=== PATIENT | female | born 1985 | race Caucasian/White ===

== ENCOUNTER 2016-10-18 16:14 | Emergency (ER) | payer OTHER ==
[~2016-10-18] VITALS: Ht 160 cm; Wt 53.0 kg
[~2016-10-18 16:14] MED LIST: CHOL20009 PO; CRAN1CAP15 PO; DOXY100C2 PO; FERR1TAB23 PO
[2016-10-18 16:24] VITALS: TEMP 36.6; Ht 160 cm; Wt 53.0 kg
[2016-10-18] MEDS ORDERED: KETOROLAC TROMETHAMINE 30 MG/ML VIAL IV STA (16:51)
[2016-10-18] MEDS ORDERED: SODIUM CHLORIDE 0.9% 1000ML 1,000 ML IV STA (16:51)
[2016-10-18] MEDS ORDERED: SODIUM CHLORIDE 0.9% 1000ML 2,000 ML IV STA (16:51)
[2016-10-18] MEDS ORDERED: ONDANSETRON INJ 2 MG/ML 2 ML VIAL IV STA (16:51)
[2016-10-18] MEDS ORDERED: BISM262T3 PO (17:15)
[2016-10-18] MEDS ORDERED: IBUP-1050 PO (17:15)
[2016-10-18 17:20] LABS: BASO % 0.6 %; BASO ABS # 0.04 K/uL (0-0.2); COMPLETE YES; EOS % 1.3 %; HEMATOCRIT 37.8 % (37-47); IG% 0.2 %; LYMPH % 25.4 %; MEAN CELL VOLUME 89.2 fL (80-100); MEAN CORPUSCULAR HEMOGLOBIN 30.4 pg (25-34); MEAN CORPUSCULAR HGB CONC 34.1 g/dl (32-36); MEAN PLATELET VOLUME 9.2 fL (7.4-10.4); MONO % 10.8 %; NEUT % 61.7 %; PLATELET COUNT 319 K/uL (130-400); RED BLOOD COUNT 4.24 M/uL (4.2-5.4); WHITE BLOOD COUNT 6.29 K/uL (4.8-10.8)
[2016-10-18 17:40] LABS: POTASSIUM 3.6 mmol/L (3.5-5.1)
[2016-10-18 17:44] LABS: BUN/CREATININE RATIO 9.5 (10-20); CALCIUM 8.5 mg/dl (8.5-10.1); CREATININE 0.62 mg/dl (0.60-1.20)
[2016-10-18 17:47] LABS: ALB/GLOB RATIO 1.2 (0.9-2)
[2016-10-18 17:55] LABS: URINE APPEARANCE CLEAR (CLEAR); URINE BILIRUBIN NEG (NEG); URINE COLOR YELLOW; URINE NITRITE NEG (NEG); URINE SPECIFIC GRAVITY 1.013 (1.000-1.030); UROBILINOGEN NEG (NEG)
[2016-10-18 18:09] LABS: PREG INTERNAL NEGATIVE QC NEG CLEAR BACKGROUND; PREG INTERNAL POSITIVE QC POS CONTROL LINE
[2016-10-18 18:44] LABS: THYROID STIMULATING HORMONE 2.43 uIu/ml (0.300-4.500)
[2016-10-18 18:51] LABS: MANUAL MICROSCOPIC REQUIRED? NO; REVIEW REQ? NO
[2016-10-18] MEDS ORDERED: ONDA4TAB10 SL (19:35)
--- NOTE | 2016-10-18 19:38 | EMERGENCY ROOM VISIT NOTE ---
History First contact with patient: 16:28 Chief Complaint: NAUSEA Stated Complaint: NAUSEA,DIZZY,DIARRHEA,VOMITTING Nursing Triage Summary: n/v/d with FIGUEROA , kidney pain and "disorientation " History of Present Illness Patient is a 31-year-old white female who presents the emergency department today by her for evaluation of nausea, vomiting and diarrhea times one week. She states her symptoms started with loose, watery, green stools about a week ago. She notes that she would have diarrhea after every time she would eat. In the last 3 days the diarrhea has increased in frequency. Today, she felt nauseous and vomited. She has subjectively felt feverish yesterday and today, but has not recorded her temperature with a thermometer. She denies any abdominal pain, but notes some left low back pain. She has a duplicated renal system, history of renal cyst and a ureterocele repair, reports that she has been prone to urinary tract infection and kidney infections, but has not had any urinary symptoms, nor has she been on any antibiotics for several months. Patient notes that she has had a mild headache in the last couple of days. She reports that she has Lyme Disease. She was seen here a couple of years ago where she had some equivocal testing for Lyme disease and was treated with doxycycline. She was apparently treated with different antibiotic sometime later for ongoing/recurrent symptoms. She states that she has problems with fatigue, joint pain, headaches and depression that she attributes to her Lyme disease. She states that when she gets sick with other illnesses, it makes her Lyme disease symptoms worse. She is in graduate school and reports that there have been sick contacts in class. She reports that her has been well however. She denies any unusual food or water consumption, recent antibiotic use, or foreign travel. She has municipal water. She denies melena, hematochezia or hematemesis. Review of Systems Review of systems as per HPI. All other systems reviewed were negative. 10 systems reviewed. Past Medical/Surgical History Medical Problems: (1) Altered mental status (2) Borderline results on serologic testing for Lyme disease (3) Head ache (4) PCOS (polycystic ovarian syndrome) (5) Thalassemia carrier Surgical Problems: (1) History of urologic surgery Family History Cancer FH: Parkinson's disease Hypertension Kidney disease Kidney stones Social History Smoking Status: Never Smoker Alcohol Use: occasionally Marital Status: Housing Status: lives with significant other Occupation Status: employed, [employer] student Current/Historical Medications Scheduled Cholecalciferol (Vitamin D), 1 TAB PO UNKNOWN Ferrous Sulfate (Iron), 325 MG PO UNKNOWN Scheduled PRN Bismuth Subsalicylate (Pepto Bismol Chew Tab), 1 TAB PO Q12 PRN for Ibuprofen (Advil), 200-600 MG PO Q4H PRN for Pain Ondasetron Odt (Zofran Odt), 4 MG SL Q4 PRN for Nausea or Vomiting Physical Exam Vital Signs Date Time Temp Pulse Resp B/P (MAP) Pulse Ox O2 Delivery O2 Flow Rate FiO2 10/18/16 20:27 66 18 113/76 99 10/18/16 17:18 69 105/73 80 106/80 72 114/76 10/18/16 16:24 36.6 72 16 113/75 96 Physical Exam CONSTITUTIONAL: Patient is a thin, ill appearing 31-year-old white female who is awake and alert and in mild distress due to her nausea. EYES: Pupils equal, round, reactive to light and accommodation. EOMs intact without nystagmus. Sclera are anicteric. ENT: Tympanic membranes intact, with normal landmarks. External canals are clear. Oral and nasopharynx are clear. Mucous membranes are moist, no lesions , tongue and gums appear normal. NECK: No bruits auscultated. Supple without lymphadenopathy. No thyromegaly. No meningeal signs. Full active range of motion without discomfort. CARDIOVASCULAR: Regular rate and rhythm, with normal S1 and S2, no murmur or gallop or rub is heard. No carotid bruits auscultated. No JVD. Peripheral pulses easy to palpable. RESPIRATORY: Breath sounds equal and clear to auscultation without wheezes, rales, or rhonchi heard. Full and equal chest expansion without accessory muscle use or retractions. GI: Bowel sounds are present. Abdomen is soft, nontender, nondistended. No organomegaly. No pulsatile masses. No guarding or rebound. MUSCULOSKELETAL: Full range of motion of extremities x 4 with good strength. No cyanosis, edema, joint tenderness or swelling. No deformity. INTEGUMENTARY: No lesions or rash, normal skin turgor. NEUROLOGICAL: Alert, oriented, and cooperative. Cranial nerves, sensation and strength grossly intact. Pupils round, equal, and react to light, EOMs are full. LYMPH: No lymphadenopathy. Medical Decision & Procedures Laboratory Results 10/18/16 17:10 Red Blood Count 4.24, Mean Corpuscular Volume 89.2, Mean Corpuscular Hemoglobin 30.4, Mean Corpuscular Hemoglobin Concent 34.1, Mean Platelet Volume 9.2, Neutrophils (%) (Auto) 61.7, Lymphocytes (%) (Auto) 25.4, Monocytes (%) (Auto) 10.8, Eosinophils (%) (Auto) 1.3, Basophils (%) (Auto) 0.6, Neutrophils # (Auto ) 3.88, Lymphocytes # (Auto) 1.60, Monocytes # (Auto) 0.68, Eosinophils # (Auto ) 0.08, Basophils # (Auto) 0.04 10/18/16 17:10 Test 10/18/16 17:10 10/18/16 17:28 White Blood Count 6.29 K/uL (4.8-10.8) Red Blood Count 4.24 M/uL (4.2-5.4) Hemoglobin 12.9 g/dL (12.0-16.0) Hematocrit 37.8 % (37-47) Mean Corpuscular Volume 89.2 fL (80-100) Mean Corpuscular Hemoglobin 30.4 pg (25-34) Mean Corpuscular Hemoglobin Concent 34.1 g/dl (32-36) Platelet Count 319 K/uL (130-400) Mean Platelet Volume 9.2 fL (7.4-10.4) Neutrophils (%) (Auto) 61.7 % Lymphocytes (%) (Auto) 25.4 % Monocytes (%) (Auto) 10.8 % Eosinophils (%) (Auto) 1.3 % Basophils (%) (Auto) 0.6 % Neutrophils # (Auto) 3.88 K/uL (1.4-6.5) Lymphocytes # (Auto) 1.60 K/uL (1.2-3.4) Monocytes # (Auto) 0.68 K/uL (0.11-0.59) Eosinophils # (Auto) 0.08 K/uL (0-0.5) Basophils # (Auto) 0.04 K/uL (0-0.2) RDW Standard Deviation 38.8 fL (36.4-46.3) RDW Coefficient of Variation 12.1 % (11.5-14.5) Immature Granulocyte % (Auto) 0.2 % Immature Granulocyte # (Auto) 0.01 K/uL (0.00-0.02) Anion Gap 4.0 mmol/L (3-11) Est Creatinine Clear Calc Drug Dose 107.7 ml/min Estimated GFR () 138.3 Estimated GFR (Non- 119.3 BUN/Creatinine Ratio 9.5 (10-20) Calcium Level 8.5 mg/dl (8.5-10.1) Iron Level 60 mcg/dl (35-150) Total Bilirubin 0.6 mg/dl (0.2-1) Aspartate Amino Transf (AST/SGOT) 32 U/L (15-37) Alanine Aminotransferase (ALT/SGPT) 33 U/L (12-78) Alkaline Phosphatase 90 U/L (45-117) Total Protein 7.2 gm/dl (6.4-8.2) Albumin 3.9 gm/dl (3.4-5.0) Globulin 3.3 gm/dl (2.5-4.0) Albumin/Globulin Ratio 1.2 (0.9-2) Lipase 156 U/L (73-393) Thyroid Stimulating Hormone (TSH) 2.430 uIu/ml (0.300-4.500) Human Chorionic Gonadotropin, Qual NEG (NEG) Urine Color YELLOW Urine Appearance CLEAR (CLEAR) Urine pH 5.0 (4.5-7.5) Urine Specific [place] 1.013 (1.000-1.030) Urine Protein NEG (NEG) Urine Glucose (UA) NEG (NEG) Urine Ketones NEG (NEG) Urine Occult Blood NEG (NEG) Urine Nitrite NEG (NEG) Urine Bilirubin NEG (NEG) Urine Urobilinogen NEG (NEG) Urine Leukocyte Esterase NEG (NEG) Medications Administered Medications (Trade) Dose Ordered Sig/Delicia Route Start Time Stop Time Status Last Admin Dose Admin Sodium Chloride 2,000 ml @ 999 mls/hr Q2H1M STAT IV 10/18/16 16:51 10/18/16 18:51 DC 10/18/16 17:26 999 MLS/HR Ondansetron HCl (Zofran Inj) 4 mg NOW STAT IV 10/18/16 16:51 10/18/16 16:54 DC 10/18/16 17:27 4 MG Ketorolac Tromethamine (Toradol Inj) 30 mg NOW STAT IV 10/18/16 16:51 10/18/16 16:54 DC 10/18/16 17:27 30 MG ED Course The patient was seen and evaluated as above. Her old records were reviewed. IV lock was initiated and she was hydrated with a 2 L bolus of normal saline solution. She was medicated with Zofran 4 mg IV for nausea and Toradol 30 mg IV for her headache. Orthostatic vitals were obtained and she was not orthostatic. CBC with differential, CMP, lipase, serum hCG, TSH and urinalysis were performed. Patient requested that her "iron level" be tested, therefore serum iron was performed. Laboratory studies noted a normal white count, no left shift or bandemia. H&H is 12.9 37.8, platelet count 319,000. Electrolytes are without significant abnormality. Renal function is normal. Iron level was 68. LFTs are not elevated. Lipase is not indicative of acute pancreatitis. Serum hCG is negative. TSH is indicative of a euthyroid state. Urinalysis was completely clear. Stool studies were ordered, however the patient was unable to provide a stool sample to send off for analysis while in the emergency department. The patient presents to the emergency department for evaluation of a week's worth of diarrhea, with associated vomiting today. She has a benign abdominal exam. Her laboratory studies are unremarkable. She was unable to provide a stool sample for analysis, therefore stool culture was unable to be performed at this time. She was given a kit to collect a stool sample at home and in order to bring to the hospital for analysis if she is able to collect one. The patient also presents to emergency department with multiple vague symptoms including joint pain, headaches, fatigue and depression, which she suspects are related to her history of Lyme disease, but also has a history of PCOS and anemia. Supportive care was advised. She was encouraged to follow a clear liquid diet and advance as tolerated. She was provided a prescription for Zofran to use if needed. It was not felt that any imaging of her abdomen was indicated at this time. She was advised to follow-up with her primary care provider this week for recheck particularly if her symptoms are not improving. She was discharged home with her in good condition. Differential diagnoses entertained included UTI, pyelonephritis, renal colic, , ectopic , bowel obstruction, perforation, infectious versus inflammatory colitis/enteritis, diverticulitis, food borne illness, among others. Medical Decision See Emergency Department course. Medication Reconcilliation Current Medication List: was personally reviewed by me Blood Pressure Screening Patient's blood pressure: Normal blood pressure Blood pressure disposition: Did not require urgent referral Impression Primary Impression: Vomiting and diarrhea Departure Information Prescriptions Ondasetron Odt (ZOFRAN ODT) 4 Mg Tab 4 MG SL Q4 Y for Nausea or Vomiting, #20 TAB Prov: Michela Weldon PA 10/18/16 Referrals Esther Valverde CRNP (PCP) Patient Instructions My [facility] Additional Instructions Zofran(odansetron) tablets 4mg: Take one and allow it to dissolve in your mouth every four to six hours as needed for nausea or vomiting. Ibuprofen(Motrin, Advil) may be used for fever or pain. Use 600mg every six hours as needed. Take with food. Avoid using more than 2400mg in a 24 hour period. Do not use 2400mg per day for more than three consecutive days without physician direction. Prolonged inappropriate use can lead to stomach upset or ulcers. (AND/OR) Acetaminophen(Tylenol) may be used for fever or pain. Use 1000mg every six hours as needed. Avoid using more than 4000mg in a 24 hour period. Rest and drink plenty of fluids as tolerated. Slow sips of water or sports drinks are recommended instead of large amounts all at once. Continue current medications. Once your stomach is settled start with a clear liquid diet (jello, soup broth, etc.) and then advance as tolerated. You should avoid full, heavy meals for about 24 hrs from the time your symptoms resolved. Return to the ER for persistent vomiting, fevers, abdominal pain, chest pains, difficulty breathing, black or bloody stools, worsening of your condition, or as needed. Follow up with your primary physician in 2-3 days for a recheck of your current condition. If you are able to collect a stool sample at home, bring with prescription to outpatient lab at the hospital for testing.
[2016-10-18 20:27] VITALS: BP 113/76; PULSE 66; O2SAT 99
== END 2016-10-18 19:57 | disposition home or self-care (01) ==
LOC: C.EDB 16:20
DX: R11.2 Nausea with vomiting, unspecified (principal); R19.7 Diarrhea, unspecified; A69.20 Lyme disease, unspecified; F32.9 Major depressive disorder, single episode, unspecified; E28.2 Polycystic ovarian syndrome; Z80.9 Family history of malignant neoplasm, unspecified; Z82.49 Family history of ischemic heart disease and other diseases of the circulatory system; Z84.1 Family history of disorders of kidney and ureter

== ENCOUNTER 2018-06-27 13:07 | Inpatient (IN) ==
[2018-06-27] MEDS ORDERED: OXYTOCIN 30 UNITS/500 ML BAG IV PRN (14:40)
--- NOTE | 2018-06-27 14:50 | History & Physical Report ---
Date of Service June 27, 2018 Assessment & Plan (1) 39 weeks gestation of : fetus category one (2) PROM (premature rupture of membranes): Discussed expectant management vs. pitocin. They would like to walk and have expectant management for now. prom for 6 hours. Discussed would prefer not to go past 12 hours without cervical change. They are agreeable. Patient tolerated exam ok for me. Desires an unmedicated delivery. History of Present Illness Chief Complaint: leaking fluid and contractions Primary Care Provider: NO PCP Patient is a 32yowf g2/0010 with iup at 39 5/7 weeks who presents to labor and delivery noting several gushes of fluid since 8:45 am. no vb. +fm. She was evaluated in the office and per Dr. Galeas and cx was 1 cm? but very difficult exam. Then he did an amnisure after she was on the monitor and it was weakly positive. Sent here for probable labor. Patient has required iron transfusions in the at hgb at 28 week was 8.2. labs--A+/ab-/pap nl/ri/rprnr/hepb-/hiv-/gc/ct-/cf-/gtt x 2 neg/ panorama low risk male./sma neg/gbs neg Allergies Allergy/AdvReac Type Severity Reaction Status Date / Time Sulfa (Sulfonamide Allergy Unknown ANAPHYLAXIS Verified 10/18/16 17:14 Antibiotics) Home Medications Home Medications Medication Instructions Recorded Confirmed Type Colace 06/27/18 History PNV cmb#95-ferrous fumarate-FA 1 tab PO DAILY 06/27/18 06/27/18 History [] cranberry 06/27/18 History iron 06/27/18 History magnesium 06/27/18 History Patient History Medical History Anemia Hemorrhoids Herpes simplex Kidney cysts Ureterocele Surgical History H/O LEEP Social History Preferred Language: [place] Electronic Tech Required: No Beliefs That Will Affect Care: None marital status: Current Living Situation: Spouse Other Information That Helps Us Care for You: No Feels Safe at Home: Yes Safety Concerns: Feels Safe At This Time Smoking Status: Never smoker Hx Alcohol Use: No Hx Substance Use: No OB History g1--2005/sab [employer] History no std, no abnl paps Review of Systems All systems reviewed & are unremarkable except as noted in HPI & below Physical Exam Constitutional: WD/WN, vitals as above Gastrointestinal (Abdomen): abd--soft, nt, nd, gravid Genitourinary: cx--/-2/mid, feels like it may be scarred., membranes palpable toco--q6-8 min efm--145 with mod variability, accels to 160s, had a 4 min contraction with a bit of a decel, but did not recurr and immediately reassuring after. Results & Data Vital Signs (Past 12 Hours) Vital Signs Temp Pulse Resp BP 06/27/18 13:37 36.5 C 24 06/27/18 13:14 83 127/76 06/27/18 13:13 36.5 C 24
[2018-06-27 14:59] LABS: Hematocrit (blood only) 33.6 % (37-47); Hemoglobin 11.7 g/dL (12.0-16.0); Mean Corpuscular Volume 80.2 fL (80-100); Mean Platelet Volume 8.9 fL (7.4-10.4); Platelet Count 362 K/uL (130-400); RDW Coefficient of Variation 20.6 % (11.5-14.5); RDW Standard Deviation 59.5 fL (36.4-46.3); Red Blood Count 4.19 M/uL (4.2-5.4); White Blood Count 10.81 K/uL (4.8-10.8)
[2018-06-27 15:12] LABS: Mean Corpuscular Hgb Conc 34.8 g/dL (32-36)
--- NOTE | 2018-06-27 21:15 | Labor Progress Brief Note ---
Date of Service June 27, 2018 Subjective more uncomfortable with contractions Assessment & Plan (1) 39 weeks gestation of : fetus category one (2) PROM (premature rupture of membranes): Discussed expectant management vs. arom forebag vs pitocin. She definitiely does not want pit. They would like to continue to have expectant management for now. prom for 12 hours. Has made cervical change and cx feels smaller, do not feel we are going to need to break up scar. Physical Exam Constitutional: WD/WN, vitals as above Genitourinary: cx--4/-2, cervix softer, feel fluid in front of baby's head Results & Data Vital Signs (Past 12 Hours) Vital Signs Temp Pulse Resp BP 06/27/18 19:44 36.3 C L 87 18 120/71 06/27/18 19:33 87 120/71 06/27/18 18:21 36.7 C 22 06/27/18 13:37 36.5 C 24 06/27/18 13:14 83 127/76 06/27/18 13:13 36.5 C 24
--- NOTE | 2018-06-28 00:51 | Labor Progress Brief Note ---
Date of Service June 28, 2018 Subjective more uncomfortable with contractions Assessment & Plan (1) 39 weeks gestation of : fetus category one (2) PROM (premature rupture of membranes): arom done. prom for 16 hours. Patient appears to be exhausted. I tried to broach the subject of discussing pain meds but she did not pursue. Has good support with and Inventory Control Manager. no s/s of infection. fetus overall reassuring. Physical Exam Constitutional: WD/WN, vitals as above Genitourinary: cx--4-5/100/-2 toco--q2-4min, palpate moderate. efm--130s with mod variability, accels present, no decels, +scalp stim permission obtained from arom and done for clear fluid. Results & Data Vital Signs (Past 12 Hours) Vital Signs Temp Pulse Resp BP 06/27/18 22:45 36.4 C L 78 22 115/55 L 06/27/18 21:15 36.3 C L 22 06/27/18 19:44 36.3 C L 87 18 120/71 06/27/18 19:33 87 120/71 06/27/18 18:21 36.7 C 22 06/27/18 13:37 36.5 C 24 06/27/18 13:14 83 127/76 06/27/18 13:13 36.5 C 24
[2018-06-28] MEDS: LACTATED RINGER'S 1,000 ML IV PRN ×3 (01:51→08:10)
[2018-06-28] MEDS ORDERED: ePHEDrine sulfate 50 MG/ML AMP ONE (01:56)
[2018-06-28] MEDS ORDERED: BUPIVACAINE 0.25% 30 ML VIAL ONE (01:56)
[2018-06-28] MEDS ORDERED: fentaNYL citrate 100 MCG/2 ML VIAL ONE ×2 (01:56→14:28)
[2018-06-28] MEDS ORDERED: fentaNYL 2MCG/ML ROPIV 1.25MG/ML 100 ML BAG EPI ONE (01:57)
--- NOTE | 2018-06-28 02:51 | Anesthesiology Consultation ---
Date of Service June 28, 2018 Assessment & Plan (1) Encounter for pre-operative examination: Chart Review Chart Review: Patient NOT seen in Pre Admission Testing and Acceptable Risk for Labor Epidural Consults Requested none ASA ASA2 Proposed Anesthesia Anesthesia Type: Labor Epidural Risk / Benefits Reviewed With: PT / POA / Parent / Guardian, Accepts Plan and Informed Consent Obtained History Height/Weight Height: 5 ft 3 in Weight: 67.168 kg Allergies Allergy/AdvReac Type Severity Reaction Status Date / Time Sulfa (Sulfonamide Allergy Unknown ANAPHYLAXIS Verified 10/18/16 17:14 Antibiotics) Medications Home Medications Medication Instructions Recorded Confirmed Last Taken Colace 06/27/18 06/27/18 0800 PNV cmb#95-ferrous fumarate-FA 1 tab PO DAILY 06/27/18 06/27/18 06/27/18 [] 0800 cranberry 06/27/18 06/27/18 08:00 iron 06/27/18 06/27/18 0800 magnesium 06/27/18 06/26/18 08:00 Active Medications Generic Name Dose Route Start Last Admin Trade Name Freq PRN Reason Stop Dose Admin Lactated Ringer's 1,000 mls @ 125 mls/hr 06/27/18 14:40 06/28/18 01:51 Lr IV 06/29/18 14:39 999 mls/hr .Q8H PRN Administration L&D Protocol Protocol NPO Date Last Intake of Fluids: 06/28/18 Time Last Intake of Fluids: 02:00 Date Last Intake of Solids: 06/27/18 Time Last Intake of Solids: 12:00 Past Medical History Medical History Anemia Hemorrhoids Herpes simplex Kidney cysts Ureterocele Exercise / Class Metabolic Activity II 4-5 Yardwork/Stairs/Walk up hill Past Surgical History Surgical History H/O LEEP Past Anesthesia History No Hx of Anesthesia Complications and No Family Hx of Anesthesia Complications History of PONV No Hx of PONV and No Hx of Motion Sickness Social History Smoking Status: Never smoker Hx Alcohol Use: No Hx Substance Use: No Physical Exam Vital Signs Last Vital Signs Temp 36.6 C 06/28/18 01:20 Pulse 91 H 06/28/18 02:49 Resp 22 06/28/18 01:20 BP 117/61 06/28/18 02:48 Pulse Ox 94 06/28/18 02:49 ENMT Mouth: no dentition abnormality Thyromental Distance: > or= 3.5 Finger Breadths Mallampati Class: II Neck normal visual inspection Respiratory normal respiratory effort Auscultation: lungs clear to auscultation bilaterally Cardiovascular Rate/Rhythm: regular rate and regular rhythm Psychiatric Orientation: alert
[2018-06-28] MEDS ORDERED: ONDANSETRON INJ 2 MG/ML 2 ML VIAL IV PRN (02:54)
[2018-06-28] MEDS ORDERED: ePHEDrine sulfate 50 MG/ML AMP IV PRN ×2 (02:54→15:10)
[2018-06-28] MEDS ORDERED: NALOXONE HCL 0.4 MG/1 ML VIAL/CARP IV PRN ×2 (02:54→15:10)
[2018-06-28] MEDS ORDERED: fentaNYL 2MCG/ML ROPIV 1.25MG/ML 100 ML BAG EPI PRN (02:54)
[2018-06-28] MEDS ORDERED: NALBUPHINE HCL INJ 10 MG/ML AMP IV PRN ×2 (02:54→15:10)
[2018-06-28] MEDS ORDERED: PROMETHAZINE HCL 6.25 MG in SODIUM CHLORIDE 0.9% 50 ML IV PRN (02:54)
[2018-06-28] MEDS ORDERED: DiphenhydrAMINE HCL 50 MG/ML VIAL IV PRN ×2 (02:54→15:10)
[2018-06-28] MEDS ORDERED: NALOXONE HCL 1 MG in SODIUM CHLORIDE 0.9% 1000ML 1,000 ML IV PRN ×2 (02:54→15:10)
--- NOTE | 2018-06-28 03:16 | Labor Progress Brief Note ---
Date of Service June 28, 2018 Subjective patient recently got an epidual and is just starting to get comfortable Assessment & Plan (1) 39 weeks gestation of : fetus category two but overall reassuring. (2) PROM (premature rupture of membranes): Will allow patient to rest. Continue expectant management. anticipate . Physical Exam Constitutional: WD/WN, vitals as above Genitourinary: cx--6/100/-1 per nursing toco--q2-4min efm--130s with mod variability, small accels, variable/early with contractions, slightly worse since epidural. prior to epidural was just having little variables Results & Data Vital Signs (Past 12 Hours) Vital Signs Temp Pulse Resp BP Pulse Ox 06/28/18 03:10 85 111/62 06/28/18 03:06 86 96 06/28/18 03:05 86 116/56 L 06/28/18 03:01 101 H 97 06/28/18 03:00 99 H 116/55 L 06/28/18 02:56 88 96 06/28/18 02:55 93 H 113/66 06/28/18 02:51 100 H 95 06/28/18 02:49 91 H 94 06/28/18 02:48 88 117/61 06/28/18 02:46 89 120/63 96 06/28/18 02:45 89 118/63 06/28/18 02:42 90 121/67 06/28/18 02:41 100 H 119/73 95 06/28/18 02:36 98 H 97 06/28/18 02:34 103 H 94 06/28/18 02:31 97 H 97 06/28/18 02:28 98 H 94 06/28/18 02:26 85 95 06/28/18 01:20 36.6 C 86 22 120/76 06/27/18 22:45 36.4 C L 78 22 115/55 L 06/27/18 21:15 36.3 C L 22 06/27/18 19:44 36.3 C L 87 18 120/71 06/27/18 19:33 87 120/71 06/27/18 18:21 36.7 C 22
[2018-06-28] MEDS ORDERED: CEFAZOLIN 2000MG 2,000 MG/15 ML SYR IV SCH (06:00)
--- NOTE | 2018-06-28 06:21 | Labor Progress Brief Note ---
Date of Service June 28, 2018 Subjective pretty comfortable. not noting rectal pressure but pressure in abdomen Assessment & Plan (1) PROM (premature rupture of membranes): fetus category two but reassuring and will continue to watch. (2) 39 weeks gestation of : continue current management. baby still at 0 station so hopefully will labor down with some time. Physical Exam Constitutional: WD/WN, vitals as above Genitourinary: cx--slight bit of cx on right, 0 station toco--q2-4min efm--130s with mod variability, had a 6 min decel x 1, but otherwise some variables Results & Data Vital Signs (Past 12 Hours) Vital Signs Temp Pulse Resp BP Pulse Ox 06/28/18 06:13 82 96/51 L 06/28/18 06:12 87 95 06/28/18 06:11 70 86/53 L 06/28/18 06:07 80 95 06/28/18 06:02 74 95 06/28/18 05:57 76 95 06/28/18 05:55 77 88/53 L 06/28/18 05:52 75 95 06/28/18 05:50 75 94 06/28/18 05:47 74 95 06/28/18 05:45 77 94 06/28/18 05:42 76 96 06/28/18 05:41 73 86/51 L 06/28/18 05:40 75 94 06/28/18 05:37 74 95 06/28/18 05:32 78 96 06/28/18 05:27 78 95 06/28/18 05:26 71 113/58 L 06/28/18 05:22 73 96 06/28/18 05:17 75 95 06/28/18 05:12 74 96 06/28/18 05:11 69 112/59 L 06/28/18 05:07 76 95 06/28/18 05:02 78 96 06/28/18 05:00 37.0 C 18 06/28/18 04:57 73 99 06/28/18 04:56 77 113/55 L 06/28/18 04:52 71 98 06/28/18 04:47 74 99 06/28/18 04:42 76 115/62 99 06/28/18 04:37 75 99 06/28/18 04:32 73 98 06/28/18 04:27 75 99 06/28/18 04:25 73 16 108/61 06/28/18 04:22 75 99 06/28/18 04:17 74 95 06/28/18 04:16 78 101/53 L 06/28/18 04:15 74 209/131 H 06/28/18 04:12 80 95 06/28/18 04:07 73 95 06/28/18 04:06 75 107/60 06/28/18 04:02 75 94 06/28/18 04:00 75 118/58 L 06/28/18 03:59 73 94 06/28/18 03:57 74 93 06/28/18 03:55 72 107/55 L 06/28/18 03:52 74 93 06/28/18 03:50 74 109/55 L 06/28/18 03:47 76 94 06/28/18 03:45 74 108/55 L 06/28/18 03:42 78 94 06/28/18 03:41 78 94 06/28/18 03:40 75 106/59 L 06/28/18 03:36 75 94 06/28/18 03:35 77 114/59 L 06/28/18 03:31 81 95 06/28/18 03:30 76 109/58 L 94 06/28/18 03:26 77 94 06/28/18 03:25 77 115/62 06/28/18 03:24 79 94 06/28/18 03:21 79 95 06/28/18 03:20 80 110/57 L 06/28/18 03:16 85 96 06/28/18 03:15 83 116/58 L 06/28/18 03:11 80 95 06/28/18 03:10 85 111/62 06/28/18 03:06 86 96 06/28/18 03:05 86 116/56 L 06/28/18 03:01 101 H 97 06/28/18 03:00 36.7 C 99 H 20 116/55 L 06/28/18 02:56 88 96 06/28/18 02:55 93 H 113/66 06/28/18 02:51 100 H 95 06/28/18 02:49 91 H 94 06/28/18 02:48 88 117/61 06/28/18 02:46 89 120/63 96 06/28/18 02:45 89 118/63 06/28/18 02:42 90 121/67 06/28/18 02:41 100 H 119/73 95 06/28/18 02:36 98 H 97 06/28/18 02:34 103 H 94 06/28/18 02:31 97 H 97 06/28/18 02:28 98 H 94 06/28/18 02:26 85 95 06/28/18 01:20 36.6 C 86 22 120/76 06/27/18 22:45 36.4 C L 78 22 115/55 L 06/27/18 21:15 36.3 C L 22 06/27/18 19:44 36.3 C L 87 18 120/71 06/27/18 19:33 87 120/71 06/27/18 18:21 36.7 C 22
--- NOTE | 2018-06-28 09:57 | Labor Progress Brief Note ---
Date of Service June 28, 2018 Subjective Patient seen at 0852. She was comfortable with epidural and minimal pelvic pressure. She continues to decline any intervention to speed labor. Assessment & Plan (1) PROM (premature rupture of membranes): Patient has labored spontaneously to complete dilation. A test push was done which resulted in variable decelerations and was then followed by a few minutes of borderline low FHT before spontaneous resolution back to normal baseline. Despite apparent good effort, mom was not very effective in moving the head downwards. At this time there are a large number of other patients on L&D and a planned twin section scheduled for this hour. Given the patient has no urge to push, fetus is not likely to tolerate a long second stage, and a test push did not suggest a rapid delivery is likely, I have asked the patient to labor down until urge to push arises or until the concurrent twin delivery is done. At that time we will be better able to respond if FHT are nonreassuring during pushes, and/or have a shorter distance of pushing to do. Patient is strongly desirous of a low-intervention and has continued to refuse pitocin. She is happy to labor down for now and await the spontaneous urge to push. PROM onset of labor timing: onset of labor within 24 hours of rupture PROM gestational age: full term Qualified Code(s): O42.02 - Full-term premature rupture of membranes, onset of labor within 24 hours of rupture Present on Admission?: Yes Physical Exam Physical Exam: Cvx 10/100/+2 with molding noted. Mild labial edema. FHT Cat 1 with occasional early decels. [place] irregular; some coupling Q2m, some Q6m. Results & Data Vital Signs (Past 12 Hours) Vital Signs Temp Pulse Resp BP Pulse Ox 06/28/18 09:52 77 98 06/28/18 09:47 76 99 06/28/18 09:42 73 99 06/28/18 09:41 72 107/58 L 06/28/18 09:37 75 99 06/28/18 09:32 72 99 06/28/18 09:27 77 99 06/28/18 09:25 80 105/58 L 06/28/18 09:22 80 97 06/28/18 09:17 79 99 06/28/18 09:12 78 99 06/28/18 09:11 75 108/60 06/28/18 09:07 71 98 06/28/18 09:02 71 94 06/28/18 08:57 106 H 103/50 L 96 06/28/18 08:56 81 87 L 06/28/18 08:53 82 93/51 L 06/28/18 08:52 76 96 06/28/18 08:47 77 99 06/28/18 08:42 72 99 06/28/18 08:41 76 89/54 L 06/28/18 08:37 73 99 06/28/18 08:32 72 100 06/28/18 08:27 74 99 06/28/18 08:25 75 95/50 L 06/28/18 08:22 70 99 06/28/18 08:17 73 99 06/28/18 08:12 74 97/55 L 99 06/28/18 08:07 77 99 06/28/18 08:02 72 99 06/28/18 07:58 70 97/53 L 06/28/18 07:57 72 98 06/28/18 07:52 75 96 06/28/18 07:47 76 95 06/28/18 07:43 76 117/66 06/28/18 07:42 78 96 06/28/18 07:37 75 95 06/28/18 07:32 77 94 06/28/18 07:30 73 94 06/28/18 07:27 70 94 06/28/18 07:26 80 137/79 06/28/18 07:25 72 94 06/28/18 07:22 73 94 06/28/18 07:19 73 94 06/28/18 07:17 74 95 06/28/18 07:15 37.2 C 20 06/28/18 07:13 73 94 06/28/18 07:12 82 113/61 95 06/28/18 07:07 71 95 06/28/18 07:06 73 94 06/28/18 07:02 73 96 06/28/18 06:59 72 94 06/28/18 06:57 73 108/62 96 06/28/18 06:53 72 94 06/28/18 06:52 71 95 06/28/18 06:47 73 96 06/28/18 06:45 76 93 06/28/18 06:43 72 108/60 05/19 06:42 75 95 06/28/18 06:38 77 94 06/28/18 06:37 74 96 06/28/18 06:32 72 97 06/28/18 06:27 71 107/62 96 06/28/18 06:22 71 95 06/28/18 06:17 75 95 06/28/18 06:13 82 96/51 L 06/28/18 06:12 87 95 06/28/18 06:11 70 86/53 L 06/28/18 06:07 80 95 06/28/18 06:02 74 95 06/28/18 05:57 76 95 06/28/18 05:55 77 88/53 L 06/28/18 05:52 75 95 06/28/18 05:50 75 94 06/28/18 05:47 74 95 06/28/18 05:45 77 94 06/28/18 05:42 76 96 06/28/18 05:41 73 86/51 L 06/28/18 05:40 75 94 06/28/18 05:37 74 95 06/28/18 05:32 78 96 06/28/18 05:27 78 95 06/28/18 05:26 71 113/58 L 06/28/18 05:22 73 96 06/28/18 05:17 75 95 06/28/18 05:12 74 96 06/28/18 05:11 69 112/59 L 06/28/18 05:07 76 95 06/28/18 05:02 78 96 06/28/18 05:00 37.0 C 18 06/28/18 04:57 73 99 06/28/18 04:56 77 113/55 L 06/28/18 04:52 71 98 06/28/18 04:47 74 99 06/28/18 04:42 76 115/62 99 06/28/18 04:37 75 99 06/28/18 04:32 73 98 06/28/18 04:27 75 99 06/28/18 04:25 73 16 108/61 06/28/18 04:22 75 99 06/28/18 04:17 74 95 06/28/18 04:16 78 101/53 L 06/28/18 04:15 74 209/131 H 06/28/18 04:12 80 95 06/28/18 04:07 73 95 06/28/18 04:06 75 107/60 06/28/18 04:02 75 94 06/28/18 04:00 75 118/58 L 06/28/18 03:59 73 94 06/28/18 03:57 74 93 06/28/18 03:55 72 107/55 L 06/28/18 03:52 74 93 06/28/18 03:50 74 109/55 L 06/28/18 03:47 76 94 06/28/18 03:45 74 108/55 L 06/28/18 03:42 78 94 06/28/18 03:41 78 94 06/28/18 03:40 75 106/59 L 06/28/18 03:36 75 94 06/28/18 03:35 77 114/59 L 06/28/18 03:31 81 95 06/28/18 03:30 76 109/58 L 94 06/28/18 03:26 77 94 06/28/18 03:25 77 115/62 06/28/18 03:24 79 94 06/28/18 03:21 79 95 06/28/18 03:20 80 110/57 L 06/28/18 03:16 85 96 06/28/18 03:15 83 116/58 L 06/28/18 03:11 80 95 06/28/18 03:10 85 111/62 06/28/18 03:06 86 96 06/28/18 03:05 86 116/56 L 06/28/18 03:01 101 H 97 06/28/18 03:00 36.7 C 99 H 20 116/55 L 06/28/18 02:56 88 96 06/28/18 02:55 93 H 113/66 06/28/18 02:51 100 H 95 06/28/18 02:49 91 H 94 06/28/18 02:48 88 117/61 06/28/18 02:46 89 120/63 96 06/28/18 02:45 89 118/63 06/28/18 02:42 90 121/67 06/28/18 02:41 100 H 119/73 95 06/28/18 02:36 98 H 97 06/28/18 02:34 103 H 94 06/28/18 02:31 97 H 97 06/28/18 02:28 98 H 94 06/28/18 02:26 85 95 06/28/18 01:20 36.6 C 86 22 120/76 06/27/18 22:45 36.4 C L 78 22 115/55 L
--- NOTE | 2018-06-28 12:26 | Labor Progress Brief Note ---
Date of Service June 28, 2018 Subjective Patient comfortable with epidural. Seen at 12pm. Assessment & Plan (1) PROM (premature rupture of membranes): Patient has been completely dilated for several hours. Now beginning second stage actively at my recommendation. Molding noted, mild to moderate labial edema noted. Certified Professional Controller and FOB remain at bedside. Prolonged ROM is noted, but mom afebrile at this time and FHT not tachy. Patient given feedback that pushing may take a significant amount of time, as contractions are spaced up to 8 min apart and each push so far has created very little descent. I am concerned about reserve given the slow recovery from deceleration after her test push earlier this morning and again with first push now. I discussed with the patient and her support persons that we have the option to push as-is (at risk of exhaustion and/or failure to deliver making an ultimate harder), to add pitocin to bring contractions closer together and make her pushes more frequent and possibly more effective (though at risk of increasing distress as the trade-off), of attempting operative vaginal delivery to speed the process (at risk of injury to baby or mom), and/or proceeding to (with relief of distress and avoidance of pelvic impaction but at risk to mom of surgical morbidity). Each option was reviewed and all questions were answered. PROM onset of labor timing: onset of labor within 24 hours of rupture PROM gestational age: full term Qualified Code(s): O42.02 - Full-term premature rupture of membranes, onset of labor within 24 hours of rupture Present on Admission?: Yes Physical Exam Physical Exam: Second stage begun after confirming still 10/100/+2 with molding. Patient wishes to push while holding bed rails not legs. Patient pushing with evident effort and head strains slightly forward with pushes but there is no significant descent. Amniotic fluid remains clear. Temp 99.8. FHT are 145 mod adam -acc and +variable (with slow recovery after some pushes) during each push. Results & Data Vital Signs (Past 12 Hours) Vital Signs Temp Pulse Resp BP Pulse Ox 06/28/18 12:23 67 97 06/28/18 12:19 67 86 L 06/28/18 12:18 78 98 06/28/18 12:13 73 97 06/28/18 12:12 83 110/57 L 87 L 06/28/18 12:08 70 98 06/28/18 12:03 90 95 06/28/18 12:00 37.7 C H 18 06/28/18 11:58 77 95 06/28/18 11:56 74 122/69 06/28/18 11:53 77 95 06/28/18 11:48 82 94 06/28/18 11:43 78 96 06/28/18 11:42 76 114/71 06/28/18 11:38 77 94 06/28/18 11:33 76 94 06/28/18 11:28 83 95 06/28/18 11:26 76 116/66 06/28/18 11:23 77 95 06/28/18 11:18 77 94 06/28/18 11:13 75 95 06/28/18 11:12 74 114/68 06/28/18 11:08 75 95 06/28/18 11:03 73 95 06/28/18 10:58 76 95 06/28/18 10:56 73 112/62 06/28/18 10:53 76 95 06/28/18 10:48 75 95 06/28/18 10:43 73 94 06/28/18 10:41 78 107/56 L 06/28/18 10:37 79 94 06/28/18 10:32 80 94 06/28/18 10:27 83 94 06/28/18 10:26 76 105/57 L 06/28/18 10:22 87 94 06/28/18 10:17 80 94 06/28/18 10:12 78 95 06/28/18 10:11 85 113/57 L 06/28/18 10:07 37.5 C 80 18 95 06/28/18 10:02 70 99 06/28/18 09:57 84 99 06/28/18 09:56 71 105/58 L 06/28/18 09:52 77 98 06/28/18 09:47 76 99 06/28/18 09:42 73 99 05 09:41 72 107/58 L 06/28/18 09:37 75 99 06/28/18 09:32 72 99 05 09:27 77 99 05 09:25 80 105/58 L 06/28/18 09:22 80 97 05 09:17 79 99 05/24/19 09:12 78 99 06/28/18 09:11 75 108/60 06/28/18 09:07 71 98 06/28/18 09:02 71 94 06/28/18 08:57 106 H 103/50 L 96 06/28/18 08:56 81 87 L 06/28/18 08:53 82 93/51 L 06/28/18 08:52 76 96 06/28/18 08:47 77 99 06/28/18 08:42 72 99 06/28/18 08:41 76 89/54 L 06/28/18 08:37 73 99 06/28/18 08:32 72 100 06/28/18 08:27 74 99 06/28/18 08:25 75 95/50 L 06/28/18 08:22 70 99 06/28/18 08:17 73 99 06/28/18 08:12 74 97/55 L 99 06/28/18 08:07 77 99 06/28/18 08:02 72 99 06/28/18 07:58 70 97/53 L 06/28/18 07:57 72 98 06/28/18 07:52 75 96 06/28/18 07:47 76 95 06/28/18 07:43 76 117/66 06/28/18 07:42 78 96 06/28/18 07:37 75 95 06/28/18 07:32 77 94 06/28/18 07:30 73 94 06/28/18 07:27 70 94 06/28/18 07:26 80 137/79 06/28/18 07:25 72 94 06/28/18 07:22 73 94 06/28/18 07:19 73 94 06/28/18 07:17 74 95 06/28/18 07:15 37.2 C 20 06/28/18 07:13 73 94 06/28/18 07:12 82 113/61 95 06/28/18 07:07 71 95 06/28/18 07:06 73 94 06/28/18 07:02 73 96 06/28/18 06:59 72 94 06/28/18 06:57 73 108/62 96 06/28/18 06:53 72 94 06/28/18 06:52 71 95 05/24/19 06:47 73 96 06/28/18 06:45 76 93 06/28/18 06:43 72 108/60 06/28/18 06:42 75 95 06/28/18 06:38 77 94 06/28/18 06:37 74 96 06/28/18 06:32 72 97 06/28/18 06:27 71 107/62 96 06/28/18 06:22 71 95 06/28/18 06:17 75 95 06/28/18 06:13 82 96/51 L 06/28/18 06:12 87 95 06/28/18 06:11 70 86/53 L 06/28/18 06:07 80 95 06/28/18 06:02 74 95 06/28/18 05:57 76 95 06/28/18 05:55 77 88/53 L 06/28/18 05:52 75 95 06/28/18 05:50 75 94 06/28/18 05:47 74 95 06/28/18 05:45 77 94 06/28/18 05:42 76 96 06/28/18 05:41 73 86/51 L 06/28/18 05:40 75 94 06/28/18 05:37 74 95 06/28/18 05:32 78 96 06/28/18 05:27 78 95 06/28/18 05:26 71 113/58 L 06/28/18 05:22 73 96 06/28/18 05:17 75 95 06/28/18 05:12 74 96 06/28/18 05:11 69 112/59 L 06/28/18 05:07 76 95 06/28/18 05:02 78 96 06/28/18 05:00 37.0 C 18 06/28/18 04:57 73 99 06/28/18 04:56 77 113/55 L 06/28/18 04:52 71 98 06/28/18 04:47 74 99 06/28/18 04:42 76 115/62 99 06/28/18 04:37 75 99 06/28/18 04:32 73 98 06/28/18 04:27 75 99 06/28/18 04:25 73 16 108/61 06/28/18 04:22 75 99 06/28/18 04:17 74 95 06/28/18 04:16 78 101/53 L 06/28/18 04:15 74 209/131 H 06/28/18 04:12 80 95 06/28/18 04:07 73 95 06/28/18 04:06 75 107/60 06/28/18 04:02 75 94 06/28/18 04:00 75 118/58 L 06/28/18 03:59 73 94 06/28/18 03:57 74 93 06/28/18 03:55 72 107/55 L 06/28/18 03:52 74 93 06/28/18 03:50 74 109/55 L 06/28/18 03:47 76 94 06/28/18 03:45 74 108/55 L 06/28/18 03:42 78 94 06/28/18 03:41 78 94 06/28/18 03:40 75 106/59 L 06/28/18 03:36 75 94 06/28/18 03:35 77 114/59 L 06/28/18 03:31 81 95 06/28/18 03:30 76 109/58 L 94 06/28/18 03:26 77 94 06/28/18 03:25 77 115/62 06/28/18 03:24 79 94 06/28/18 03:21 79 95 06/28/18 03:20 80 110/57 L 06/28/18 03:16 85 96 06/28/18 03:15 83 116/58 L 06/28/18 03:11 80 95 06/28/18 03:10 85 111/62 06/28/18 03:06 86 96 06/28/18 03:05 86 116/56 L 06/28/18 03:01 101 H 97 06/28/18 03:00 36.7 C 99 H 20 116/55 L 06/28/18 02:56 88 96 06/28/18 02:55 93 H 113/66 06/28/18 02:51 100 H 95 06/28/18 02:49 91 H 94 06/28/18 02:48 88 117/61 06/28/18 02:46 89 120/63 96 06/28/18 02:45 89 118/63 06/28/18 02:42 90 121/67 06/28/18 02:41 100 H 119/73 95 06/28/18 02:36 98 H 97 06/28/18 02:34 103 H 94 06/28/18 02:31 97 H 97 06/28/18 02:28 98 H 94 06/28/18 02:26 85 95 06/28/18 01:20 36.6 C 86 22 120/76
[2018-06-28] MEDS ORDERED: OXYTOCIN 30 UNITS/500 ML BAG IV PRN (12:34)
[2018-06-28] MEDS ORDERED: SODIUM CHLORIDE 0.65% NA SOLN 45 ML (OCEAN) ONE (13:22)
[2018-06-28] MEDS ORDERED: LACTATED RINGER'S 1,000 ML IV SCH ×2 (14:15→15:08)
--- NOTE | 2018-06-28 14:28 | Labor Progress Brief Note ---
Date of Service June 28, 2018 Assessment & Plan (1) PROM (premature rupture of membranes): Patient has given her best effort for 2 hours. Intermittent FHT Cat 2 prevented more than small amounts of pitocin from being used. At this time, exam of the patient shows head has not come below +2 station. In addition, even during pushes, I am able to displace the head upwards and allow free flow of amniotic fluid. Labia continue to swell and are now moderately to severely edematous. I expressed my concerns that this is not likely to fit through the pelvis and that the best decision for maternal and safety would be to move to section. Mom is tearful as this was not what she hoped for, but she is accepting of the recommendation and agrees to this. Emotional support provided. A lengthy bedside conversation was held with patient, FOB and wheel and caster repairer to offer support, answer questions, and go through the consent process. PROM onset of labor timing: onset of labor within 24 hours of rup ture PROM gestational age: full term Qualified Code(s): O42.02 - Full-term premature rupture of membranes, onset of labor within 24 hours of rupture Present on Admission?: Yes Results & Data Vital Signs (Past 12 Hours) Vital Signs Temp Pulse Resp BP Pulse Ox 06/28/18 14:18 91 H 98 06/28/18 14:13 79 97 06/28/18 14:10 74 102/62 06/28/18 14:08 84 99 06/28/18 14:03 88 96 06/28/18 13:58 75 97 06/28/18 13:55 86 103/59 L 06/28/18 13:53 89 95 06/28/18 13:48 81 96 06/28/18 13:45 37.4 C 20 06/28/18 13:43 76 96 06/28/18 13:40 68 105/59 L 06/28/18 13:38 79 99 06/28/18 13:33 79 99 06/28/18 13:28 72 99 06/28/18 13:26 73 104/61 06/28/18 13:24 82 88 L 06/28/18 13:23 68 96 06/28/18 13:18 68 98 06/28/18 13:15 74 88 L 06/28/18 13:13 75 99 06/28/18 13:11 65 110/53 L 06/28/18 13:08 61 96 06/28/18 13:03 66 96 06/28/18 12:58 66 97 06/28/18 12:57 63 113/64 06/28/18 12:53 76 95 06/28/18 12:48 68 97 06/28/18 12:47 130 H 88 L 06/28/18 12:43 64 98 06/28/18 12:42 120 H 89 L 06/28/18 12:40 76 119/68 06/28/18 12:38 73 99 06/28/18 12:33 72 97 06/28/18 12:28 72 97 06/28/18 12:25 68 114/59 L 06/28/18 12:23 67 97 06/28/18 12:19 67 86 L 06/28/18 12:18 78 98 06/28/18 12:13 73 97 06/28/18 12:12 83 110/57 L 87 L 06/28/18 12:08 70 98 06/28/18 12:03 90 95 06/28/18 12:00 37.7 C H 18 06/28/18 11:58 77 95 06/28/18 11:56 74 122/69 05 11:53 77 95 06/28/18 11:48 82 94 06/28/18 11:43 78 96 06/28/18 11:42 76 114/71 06/28/18 11:38 77 94 06/28/18 11:33 76 94 06/28/18 11:28 83 95 06/28/18 11:26 76 116/66 05 11:23 77 95 05 11:18 77 94 06/28/18 11:13 75 95 05 11:12 74 114/68 06/28/18 11:08 75 95 06/28/18 11:03 73 95 05 10:58 76 95 05 10:56 73 112/62 06/28/18 10:53 76 95 06/28/18 10:48 75 95 05 10:43 73 94 06/28/18 10:41 78 107/56 L 06/28/18 10:37 79 94 05 10:32 80 94 05/24/19 10:27 83 94 06/28/18 10:26 76 105/57 L 06/28/18 10:22 87 94 06/28/18 10:17 80 94 06/28/18 10:12 78 95 06/28/18 10:11 85 113/57 L 06/28/18 10:07 37.5 C 80 18 95 06/28/18 10:02 70 99 06/28/18 09:57 84 99 06/28/18 09:56 71 105/58 L 06/28/18 09:52 77 98 06/28/18 09:47 76 99 06/28/18 09:42 73 99 06/28/18 09:41 72 107/58 L 06/28/18 09:37 75 99 06/28/18 09:32 72 99 06/28/18 09:27 77 99 06/28/18 09:25 80 105/58 L 06/28/18 09:22 80 97 06/28/18 09:17 79 99 06/28/18 09:12 78 99 06/28/18 09:11 75 108/60 06/28/18 09:07 71 98 06/28/18 09:02 71 94 06/28/18 08:57 106 H 103/50 L 96 06/28/18 08:56 81 87 L 06/28/18 08:53 82 93/51 L 06/28/18 08:52 76 96 06/28/18 08:47 77 99 06/28/18 08:42 72 99 06/28/18 08:41 76 89/54 L 06/28/18 08:37 73 99 06/28/18 08:32 72 100 06/28/18 08:27 74 99 06/28/18 08:25 75 95/50 L 06/28/18 08:22 70 99 06/28/18 08:17 73 99 06/28/18 08:12 74 97/55 L 99 06/28/18 08:07 77 99 06/28/18 08:02 72 99 06/28/18 07:58 70 97/53 L 06/28/18 07:57 72 98 06/28/18 07:52 75 96 06/28/18 07:47 76 95 06/28/18 07:43 76 117/66 06/28/18 07:42 78 96 05 07:37 75 95 05 07:32 77 94 05 07:30 73 94 05 07:27 70 94 05 07:26 80 137/79 05 07:25 72 94 05 07:22 73 94 05 07:19 73 94 05 07:17 74 95 05 07:15 37.2 C 20 06/28/18 07:13 73 94 05 07:12 82 113/61 95 05 07:07 71 95 05 07:06 73 94 05 07:02 73 96 05 06:59 72 94 05 06:57 73 108/62 96 05 06:53 72 94 05 06:52 71 95 05 06:47 73 96 05 06:45 76 93 05 06:43 72 108/60 05 06:42 75 95 05 06:38 77 94 05 06:37 74 96 05 06:32 72 97 05 06:27 71 107/62 96 05 06:22 71 95 05 06:17 75 95 05 06:13 82 96/51 L 06/28/18 06:12 87 95 05 06:11 70 86/53 L 06/28/18 06:07 80 95 05 06:02 74 95 05 05:57 76 95 05 05:55 77 88/53 L 05 05:52 75 95 05 05:50 75 94 05 05:47 74 95 05 05:45 77 94 05 05:42 76 96 05 05:41 73 86/51 L 06/28/18 05:40 75 94 05 05:37 74 95 05 05:32 78 96 05 05:27 78 95 05 05:26 71 113/58 L 06/28/18 05:22 73 96 06/28/18 05:17 75 95 06/28/18 05:12 74 96 06/28/18 05:11 69 112/59 L 06/28/18 05:07 76 95 06/28/18 05:02 78 96 06/28/18 05:00 37.0 C 18 06/28/18 04:57 73 99 06/28/18 04:56 77 113/55 L 06/28/18 04:52 71 98 06/28/18 04:47 74 99 06/28/18 04:42 76 115/62 99 06/28/18 04:37 75 99 06/28/18 04:32 73 98 06/28/18 04:27 75 99 06/28/18 04:25 73 16 108/61 06/28/18 04:22 75 99 06/28/18 04:17 74 95 06/28/18 04:16 78 101/53 L 06/28/18 04:15 74 209/131 H 06/28/18 04:12 80 95 06/28/18 04:07 73 95 06/28/18 04:06 75 107/60 06/28/18 04:02 75 94 06/28/18 04:00 75 118/58 L 06/28/18 03:59 73 94 06/28/18 03:57 74 93 06/28/18 03:55 72 107/55 L 06/28/18 03:52 74 93 06/28/18 03:50 74 109/55 L 06/28/18 03:47 76 94 06/28/18 03:45 74 108/55 L 06/28/18 03:42 78 94 06/28/18 03:41 78 94 06/28/18 03:40 75 106/59 L 06/28/18 03:36 75 94 06/28/18 03:35 77 114/59 L 06/28/18 03:31 81 95 06/28/18 03:30 76 109/58 L 94 06/28/18 03:26 77 94 06/28/18 03:25 77 115/62 06/28/18 03:24 79 94 06/28/18 03:21 79 95 06/28/18 03:20 80 110/57 L 06/28/18 03:16 85 96 06/28/18 03:15 83 116/58 L 06/28/18 03:11 80 95 06/28/18 03:10 85 111/62 06/28/18 03:06 86 96 06/28/18 03:05 86 116/56 L 06/28/18 03:01 101 H 97 06/28/18 03:00 36.7 C 99 H 20 116/55 L 06/28/18 02:56 88 96 06/28/18 02:55 93 H 113/66 06/28/18 02:51 100 H 95 06/28/18 02:49 91 H 94 06/28/18 02:48 88 117/61 06/28/18 02:46 89 120/63 96 06/28/18 02:45 89 118/63 06/28/18 02:42 90 121/67 06/28/18 02:41 100 H 119/73 95 06/28/18 02:36 98 H 97 06/28/18 02:34 103 H 94 06/28/18 02:31 97 H 97 06/28/18 02:28 98 H 94 06/28/18 02:26 85 95
[2018-06-28] MEDS ORDERED: LIDOCAINE/EPINEPHRINE 2% 1:200,000 20 ML SDV ONE ×2 (14:29→14:49)
[2018-06-28] MEDS ORDERED: CITRIC ACID/SODIUM CITRATE 15 ML UDC ONE (14:31)
[2018-06-28 14:36] LABS: Basophils # (auto) 0.01 K/uL (0-0.2); Basophils % (auto) 0.1 %; Hematocrit (blood only) 30.9 % (37-47); Hemoglobin 10.7 g/dL (12.0-16.0); Immature Granulocytes # (auto) 0.06 K/uL (0.00-0.02); Immature Granulocytes % (auto) 0.4 %; Lymphocytes # (auto) 1.02 K/uL (1.2-3.4); Lymphocytes % (auto) 6.1 %; Mean Platelet Volume 9.2 fL (7.4-10.4); Monocytes # (auto) 1.16 K/uL (0.11-0.59); Neutrophils # (auto) 14.39 K/uL (1.4-6.5); Neutrophils % (auto) 86.4 %; Platelet Count 275 K/uL (130-400); RDW Coefficient of Variation 19.9 % (11.5-14.5); RDW Standard Deviation 56.3 fL (36.4-46.3); Red Blood Count 3.91 M/uL (4.2-5.4); White Blood Count 16.64 K/uL (4.8-10.8)
[2018-06-28 14:46] LABS: Mean Corpuscular Hgb Conc 34.6 g/dL (32-36)
[2018-06-28] MEDS ORDERED: PHENYLEPHRINE HCL 10 MG/ML VIAL ONE (14:51)
[2018-06-28] MEDS ORDERED: OXYTOCIN 10 UNITS/ML VIAL ONE ×2 (14:54→14:56)
[2018-06-28] MEDS ORDERED: MoRPHine SULFATE PF 1 MG/ML 10 ML AMP/VIAL ONE (14:55)
[2018-06-28] MEDS ORDERED: ONDANSETRON INJ 2 MG/ML 2 ML VIAL ONE (15:03)
[2018-06-28] MEDS ORDERED: HYDROmorphone INJ 0.5 MG/0.5 ML SYR IV PRN (15:10)
[2018-06-28] MEDS ORDERED: MoRPHine SULFATE PF 1 MG/ML 10 ML AMP/VIAL EPI ONE (15:10)
[2018-06-28] MEDS ORDERED: NALOXONE HCL 0.08 MG in SYRINGE 1.8 ML IV PRN (15:10)
[2018-06-28] MEDS ORDERED: LACTATED RINGER'S 500 ML IV PRN (15:10)
[2018-06-28] MEDS ORDERED: NO NARCOTICS OR SEDATIVES SCH (15:15)
[2018-06-28] MEDS ORDERED: SODIUM CHLORIDE 0.9% 1000ML 1,000 ML IV SCH (15:15)
--- NOTE | 2018-06-28 15:42 | Operative Report ---
Post Operative Report Pre & Post Diagnosis Operation Date: 06/28/18 14:30 Pre-Op Diagnosis: Failure to descend Post-Op Diagnosis: Failure to descend Procedure Operation Date: 06/28/18 14:30 Actual Procedures p Section in LD - Natacha Baca MD Surgeon Natacha Baca MD Color Technician Ray Estimated Blood Loss 600 Findings Consistent with Post-Op Diagnosis Specimens Placenta, cord blood Anesthesia Type Spinal Complications none Disposition Accompanied Patient To Recovery: Yes Disposition: L&D Description of Procedure The patient was brought to the operating room and placed on the table in the supine position with a leftward tilt, then prepped and draped in standard sterile fashion. A hard time out was taken prior to proceeding. A pfannensteil incision was created sharply and carried down to the fascia using bovie electrocautery. The fascia was nicked and then extended using patel scissors. The edges of the fascia were grasped with Kamilla clamps and elevated, then sharply and bluntly dissected off the underlying rectus. The midline of the rectus was identified and bluntly . The peritoneum was bluntly entered, and this entry was extended using pressure from the surgeon's hands. The bladder retractor was placed and the lower uterine segment was examined and found to be well developed. A bladder flap was created and the retractor was replaced behind this flap to protect the bladder. A transverse lower uterine incision was then created, with final entry to the uterine cavity made in a blunt manner with the surgeon's finger. Clear amniotic fluid was encountered. The head was elevated to the incision and delivered using mild fundal pressure. The cord was doubly clamped and cut, then the vigorous was taken to the warmer for reinforcing steel placer care. The placenta was manually extracted, then the uterus was gently exteriorized from the maternal abdomen. The cavity was cleared of clot and debris using a dry lap sponge. The angles of the incision were identified with allis clamps, and the hysterotomy was then repaired in running locked fashion using 0-vicryl suture, followed by a second imbricating layer. The tubes and ovaries were examined and found to be normal bilaterally. The posterior gutter was irrigated and cleared of clot and debris. The uterus was then gently re-internalized to the abdomen. Lateral gutters were cleared of clot and debris using a damp lap sponge, and a final exam of the hysterotomy revealed good hemostasis. The rectus muscles were allowed to reapproximate naturally. The angle of the fascia was grasped with a Kamilla clamp and the fascia was then repaired in running non-locked fashion with 1- vicryl suture. At the completion of repair, the fascia was examined and found to be free of any defect. The subcutaneous tissue was copiously irrigated and then reapproximated using 3-0 chromic. The skin was then closed using 4-0 monocryl in a running subcuticular fashion and a dermabond dressing was applied. The muller was noted to be draining clear yellow urine as the patient was transferred back to her recovery room. I attest to the content of the Intraoperative Record and any orders documented therein. Any exceptions are noted below.
[2018-06-28] MEDS ORDERED: ACETAMINOPHEN 1,000 MG/100 ML VIAL IV STA (15:48)
[2018-06-28] MEDS ORDERED: DIPHTHERIA/TETANUS/PERTUSSIS 0.5 ML SYR/VIAL IM ONE (16:26)
[2018-06-28] MEDS ORDERED: HYDROCORTISONE ACETATE 25 MG SUPP PR PRN (16:26)
[2018-06-28] MEDS ORDERED: BENZOCAINE 20% AER SPR 82.5 GM CAN EXT PRN (16:26)
[2018-06-28] MEDS ORDERED: PROMETHAZINE HCL 25 MG in SODIUM CHLORIDE 0.9% 50 ML IV PRN (16:26)
[2018-06-28] MEDS ORDERED: OXYTOCIN 30 UNITS in LACTATED RINGER'S 1,000 ML IV SCH (16:30)
--- NOTE | 2018-06-28 16:52 | Anesthesia Procedure Note ---
Date of Service June 28, 2018 Anesthesia Post Epidural Note Vital Signs Vital Signs: Temp Pulse Pulse Resp BP Pulse Ox 06/28/18 16:46 82 93 06/28/18 16:45 80 110/57 L 06/28/18 16:41 86 94 06/28/18 16:40 81 20 106/58 L 06/28/18 16:36 78 94 06/28/18 16:31 81 101/57 L 94 06/28/18 16:30 36.8 C 20 06/28/18 16:26 84 149/72 H 93 06/28/18 16:21 86 95 06/28/18 16:20 84 18 89/56 L 06/28/18 16:16 89 93 06/28/18 16:11 85 92 06/28/18 16:10 81 18 86/48 L 06/28/18 16:06 89 92 06/28/18 16:04 83 95/53 L 06/28/18 16:02 82 93/51 L 06/28/18 16:01 83 94 06/28/18 15:59 78 88/51 L 06/28/18 15:57 76 85/50 L 06/28/18 15:56 85 87/49 L 93 06/28/18 15:51 81 86 L 06/28/18 15:46 81 92/52 L 94 06/28/18 15:41 85 93 06/28/18 15:40 36.9 C 82 16 06/28/18 15:36 83 91/51 L 93 06/28/18 14:33 84 95 06/28/18 14:28 80 95 06/28/18 14:23 83 95 06/28/18 14:18 91 H 98 06/28/18 14:13 79 97 06/28/18 14:10 74 102/62 06/28/18 14:08 84 99 06/28/18 14:03 88 96 06/28/18 13:58 75 97 06/28/18 13:55 86 103/59 L 06/28/18 13:53 89 95 06/28/18 13:48 81 96 06/28/18 13:45 37.4 C 20 06/28/18 13:43 76 96 06/28/18 13:40 68 105/59 L 06/28/18 13:38 79 99 06/28/18 13:33 79 99 06/28/18 13:28 72 99 06/28/18 13:26 73 104/61 06/28/18 13:24 82 88 L 06/28/18 13:23 68 96 06/28/18 13:18 68 98 06/28/18 13:15 74 88 L 06/28/18 13:13 75 99 06/28/18 13:11 65 110/53 L 06/28/18 13:08 61 96 06/28/18 13:03 66 96 06/28/18 12:58 66 97 06/28/18 12:57 63 113/64 06/28/18 12:53 76 95 06/28/18 12:48 68 97 06/28/18 12:47 130 H 88 L 06/28/18 12:43 64 98 06/28/18 12:42 120 H 89 L 06/28/18 12:40 76 119/68 06/28/18 12:38 73 99 06/28/18 12:33 72 97 06/28/18 12:28 72 97 06/28/18 12:25 68 114/59 L 06/28/18 12:23 67 97 06/28/18 12:19 67 86 L 06/28/18 12:18 78 98 06/28/18 12:13 73 97 06/28/18 12:12 83 110/57 L 87 L 06/28/18 12:08 70 98 06/28/18 12:03 90 95 06/28/18 12:00 37.7 C H 18 06/28/18 11:58 77 95 06/28/18 11:56 74 122/69 06/28/18 11:53 77 95 06/28/18 11:48 82 94 06/28/18 11:43 78 96 06/28/18 11:42 76 114/71 06/28/18 11:38 77 94 06/28/18 11:33 76 94 06/28/18 11:28 83 95 06/28/18 11:26 76 116/66 06/28/18 11:23 77 95 06/28/18 11:18 77 94 06/28/18 11:13 75 95 06/28/18 11:12 74 114/68 06/28/18 11:08 75 95 06/28/18 11:03 73 95 05/19 10:58 76 95 06/28/18 10:56 73 112/62 06/28/18 10:53 76 95 06/28/18 10:48 75 95 06/28/18 10:43 73 94 06/28/18 10:41 78 107/56 L 06/28/18 10:37 79 94 06/28/18 10:32 80 94 06/28/18 10:27 83 94 06/28/18 10:26 76 105/57 L 06/28/18 10:22 87 94 06/28/18 10:17 80 94 06/28/18 10:12 78 95 06/28/18 10:11 85 113/57 L 06/28/18 10:07 37.5 C 80 18 95 06/28/18 10:02 70 99 06/28/18 09:57 84 99 06/28/18 09:56 71 105/58 L 06/28/18 09:52 77 98 06/28/18 09:47 76 99 06/28/18 09:42 73 99 06/28/18 09:41 72 107/58 L 06/28/18 09:37 75 99 06/28/18 09:32 72 99 06/28/18 09:27 77 99 06/28/18 09:25 80 105/58 L 06/28/18 09:22 80 97 06/28/18 09:17 79 99 06/28/18 09:12 78 99 06/28/18 09:11 75 108/60 06/28/18 09:07 71 98 06/28/18 09:02 71 94 06/28/18 08:57 106 H 103/50 L 96 06/28/18 08:56 81 87 L 06/28/18 08:53 82 93/51 L 06/28/18 08:52 76 96 06/28/18 08:47 77 99 06/28/18 08:42 72 99 06/28/18 08:41 76 89/54 L 06/28/18 08:37 73 99 06/28/18 08:32 72 100 06/28/18 08:27 74 99 06/28/18 08:25 75 95/50 L 06/28/18 08:22 70 99 06/28/18 08:17 73 99 06/28/18 08:12 74 97/55 L 99 06/28/18 08:07 77 99 05 08:02 72 99 05 07:58 70 97/53 L 06/28/18 07:57 72 98 06/28/18 07:52 75 96 05 07:47 76 95 06/28/18 07:43 76 117/66 06/28/18 07:42 78 96 05 07:37 75 95 06/28/18 07:32 77 94 06/28/18 07:30 73 94 06/28/18 07:27 70 94 06/28/18 07:26 80 137/79 06/28/18 07:25 72 94 06/28/18 07:22 73 94 06/28/18 07:19 73 94 06/28/18 07:17 74 95 06/28/18 07:15 37.2 C 20 06/28/18 07:13 73 94 06/28/18 07:12 82 113/61 95 06/28/18 07:07 71 95 06/28/18 07:06 73 94 06/28/18 07:02 73 96 06/28/18 06:59 72 94 06/28/18 06:57 73 108/62 96 06/28/18 06:53 72 94 06/28/18 06:52 71 95 06/28/18 06:47 73 96 06/28/18 06:45 76 93 06/28/18 06:43 72 108/60 06/28/18 06:42 75 95 06/28/18 06:38 77 94 06/28/18 06:37 74 96 06/28/18 06:32 72 97 06/28/18 06:27 71 107/62 96 06/28/18 06:22 71 95 06/28/18 06:17 75 95 06/28/18 06:13 82 96/51 L 06/28/18 06:12 87 95 06/28/18 06:11 70 86/53 L 06/28/18 06:07 80 95 06/28/18 06:02 74 95 06/28/18 05:57 76 95 06/28/18 05:55 77 88/53 L 06/28/18 05:52 75 95 06/28/18 05:50 75 94 06/28/18 05:47 74 95 06/28/18 05:45 77 94 06/28/18 05:42 76 96 06/28/18 05:41 73 86/51 L 06/28/18 05:40 75 94 06/28/18 05:37 74 95 06/28/18 05:32 78 96 06/28/18 05:27 78 95 06/28/18 05:26 71 113/58 L 06/28/18 05:22 73 96 06/28/18 05:17 75 95 06/28/18 05:12 74 96 06/28/18 05:11 69 112/59 L 06/28/18 05:07 76 95 06/28/18 05:02 78 96 06/28/18 05:00 37.0 C 18 06/28/18 04:57 73 99 06/28/18 04:56 77 113/55 L 06/28/18 04:52 71 98 06/28/18 04:47 74 99 06/28/18 04:42 76 115/62 99 06/28/18 04:37 75 99 06/28/18 04:32 73 98 06/28/18 04:27 75 99 06/28/18 04:25 73 16 108/61 06/28/18 04:22 75 99 06/28/18 04:17 74 95 06/28/18 04:16 78 101/53 L 06/28/18 04:15 74 209/131 H 06/28/18 04:12 80 95 06/28/18 04:07 73 95 06/28/18 04:06 75 107/60 06/28/18 04:02 75 94 06/28/18 04:00 75 118/58 L 06/28/18 03:59 73 94 06/28/18 03:57 74 93 06/28/18 03:55 72 107/55 L 06/28/18 03:52 74 93 06/28/18 03:50 74 109/55 L 06/28/18 03:47 76 94 06/28/18 03:45 74 108/55 L 06/28/18 03:42 78 94 06/28/18 03:41 78 94 06/28/18 03:40 75 106/59 L 06/28/18 03:36 75 94 06/28/18 03:35 77 114/59 L 06/28/18 03:31 81 95 06/28/18 03:30 76 109/58 L 94 06/28/18 03:26 77 94 06/28/18 03:25 77 115/62 06/28/18 03:24 79 94 06/28/18 03:21 79 95 06/28/18 03:20 80 110/57 L 06/28/18 03:16 85 96 06/28/18 03:15 83 116/58 L 06/28/18 03:11 80 95 06/28/18 03:10 85 111/62 06/28/18 03:06 86 96 06/28/18 03:05 86 116/56 L 06/28/18 03:01 101 H 97 06/28/18 03:00 36.7 C 99 H 20 116/55 L 06/28/18 02:56 88 96 06/28/18 02:55 93 H 113/66 06/28/18 02:51 100 H 95 06/28/18 02:49 91 H 94 06/28/18 02:48 88 117/61 06/28/18 02:46 89 120/63 96 06/28/18 02:45 89 118/63 06/28/18 02:42 90 121/67 06/28/18 02:41 100 H 119/73 95 06/28/18 02:36 98 H 97 06/28/18 02:34 103 H 94 06/28/18 02:31 97 H 97 06/28/18 02:28 98 H 94 06/28/18 02:26 85 95 06/28/18 01:20 36.6 C 86 22 120/76 06/27/18 22:45 36.4 C L 78 22 115/55 L 06/27/18 21:15 36.3 C L 22 06/27/18 19:44 36.3 C L 87 18 120/71 06/27/18 19:33 87 120/71 06/27/18 18:21 36.7 C 22 Notes Mental Status: alert / awake / arousable and participated in evaluation Patient Amnestic to Procedure: Yes Nausea / Vomiting: adequately controlled Pain: adequately controlled Airway Patency, RR, SpO2: stable & adequate BP & HR: stable & adequate Hydration State: stable & adequate Neuraxial Anesthesia: was administered and sensory block is resolving Anesthetic Complications: no major complications apparent and Pt Satisfied with anesthetic care Epidural: Removed without complications and With tip intact
[2018-06-28] MEDS: SIMETHICONE 80 MG CHEW PO SCH (21:30)
[2018-06-28] MEDS: DOCUSATE SODIUM 100 MG CAP PO SCH (21:30)
[2018-06-28] MEDS: KETOROLAC 30 MG/ML VIAL IV PRN (21:47)
[2018-06-29] MEDS ORDERED: HYDROmorphone INJ 1 MG/ML SYRINGE ONE (02:40)
[2018-06-29] MEDS: KETOROLAC 30 MG/ML VIAL IV PRN (04:29)
[2018-06-29] MEDS ORDERED: CITRIC ACID/SODIUM CITRATE 15 ML UDC PO SCH (06:00)
--- NOTE | 2018-06-29 06:53 | Obstetrical Progress Note ---
Date of Service June 29, 2018 Assessment & Plan (1) delivery delivered: 32 year old day 1 s/p Repeat LT C/S at 39 weeks and 6 days Vital Signs Reviewed and WNL Pain well controlled, incision clean dry and intact Hemoglobin 10.7 pre op pending post op Blood type A+, GBS -, Rubella Immune Encouraged patient to start to ambulate today, will monitor for spontaneous urination, food tolerance, and ambulation today Breast feeding going well so far, encouraged further breast feeding Subjective Ambulation: limited ambulation Voiding: muller catheter in place Passing Gas:: Yes Diet Tolerance:: clear liquids Lochia:: Small Feeding Type:: breast feeding Current Pain Level(1-10): 5 Ms. Hand is doing well, she was very curious to know about healing process for C/S as she was not expecting to have one though she is happy that everything went well with her new baby, Jin. She still has her muller in place and is anxious to get up and start to walk. Constitutional: no fever and no chills Respiratory: no cough and no dyspnea Cardiovascular: no chest pain, no dyspnea and no calf pain Gastrointestinal: + abdominal pain (Incisional) and + cramping (Mild); no nausea and no vomiting Physical Exam Vital Signs (Past 24 Hours) Last Vital Signs Temp 36.8 C 06/29/18 03:20 Pulse 97 H 06/29/18 03:20 Resp 18 06/29/18 06:00 BP 111/73 06/29/18 03:20 Pulse Ox 96 06/29/18 06:00 Constitutional well developed, well nourished, cooperative and comfortable Respiratory normal respiratory effort, lungs clear to auscultation Cardiovascular Rate/Rhythm: regular rate and regular rhythm Heart Sounds: no click, no gallop, no murmur and no cardiac rub Extremities: no calf tenderness Gastrointestinal (Abdomen) Percussion/Palpation: abdomen soft; abdomen nontender (around uterus) Genitourinary OB Exam Abdomen: + fundal height (1 cm below umbilicus) Fundus: + firm and + tender Resident Activity Tracking Resident Involvement: Resident Care Provided Care Provided: OB Delivery
[2018-06-29 07:16] LABS: Basophils # (auto) 0.01 K/uL (0-0.2); Basophils % (auto) 0.1 %; Eosinophils # (auto) 0.03 K/uL (0-0.5); Eosinophils % (auto) 0.2 %; Hematocrit (blood only) 27.1 % (37-47); Hemoglobin 9.6 g/dL (12.0-16.0); Immature Granulocytes # (auto) 0.04 K/uL (0.00-0.02); Immature Granulocytes % (auto) 0.3 %; Lymphocytes # (auto) 0.98 K/uL (1.2-3.4); Lymphocytes % (auto) 7.6 %; Mean Corpuscular Hgb Conc 35.4 g/dL (32-36); Mean Corpuscular Volume 78.3 fL (80-100); Mean Platelet Volume 8.6 fL (7.4-10.4); Monocytes # (auto) 0.55 K/uL (0.11-0.59); Monocytes % (auto) 4.3 %; Neutrophils # (auto) 11.29 K/uL (1.4-6.5); Neutrophils % (auto) 87.5 %; Platelet Count 275 K/uL (130-400); RDW Coefficient of Variation 20.1 % (11.5-14.5); RDW Standard Deviation 55.9 fL (36.4-46.3); Red Blood Count 3.46 M/uL (4.2-5.4)
[2018-06-29] MEDS: SIMETHICONE 80 MG CHEW PO SCH ×5 (07:31→20:34)
[2018-06-29 07:39] LABS: Anisocytosis Present
[2018-06-29] MEDS ORDERED: DC INTRASPINAL MORPHINE SCH (09:10)
[2018-06-29] MEDS ORDERED: ONDANSETRON INJ 2 MG/ML 2 ML VIAL IV PRN (09:11)
[2018-06-29] MEDS ORDERED: DiphenhydrAMINE HCL 50 MG/ML VIAL IV PRN (09:11)
[2018-06-29] MEDS ORDERED: KETOROLAC 30 MG/ML VIAL IV PRN (09:11)
[2018-06-29] MEDS ORDERED: MEPERIDINE HCL 50 MG/ML CARP IV PRN (09:11)
[2018-06-29] MEDS: FERROUS SULFATE 325 MG TAB PO SCH (09:18)
[2018-06-29] MEDS: DOCUSATE SODIUM 100 MG CAP PO SCH ×2 (09:18→20:34)
[2018-06-29] MEDS: PRENATAL VITAMIN 1 TAB PO SCH (09:18)
--- NOTE | 2018-06-29 09:49 | Anesthesiology Progress Note ---
Date of Service June 29, 2018 Anesthesia Post Procedure Vital Signs Vital Signs: Temp Pulse Pulse Resp BP BP Pulse Ox 06/29/18 07:35 36.7 C 93 H 16 108/68 95 06/29/18 06:00 18 96 06/29/18 05:00 16 95 06/29/18 04:00 16 93 06/29/18 03:20 36.8 C 97 H 18 111/73 95 06/29/18 02:00 16 93 06/29/18 01:00 18 94 06/29/18 00:00 16 94 06/28/18 23:22 36.5 C 87 16 114/70 06/28/18 23:00 18 94 06/28/18 22:00 16 94 06/28/18 21:00 16 93 06/28/18 20:00 16 95 06/28/18 19:30 16 97 06/28/18 18:34 95 H 89 L 06/28/18 18:32 89 92 06/28/18 18:30 85 116/60 06/28/18 18:27 89 92 06/28/18 18:22 90 91 06/28/18 18:20 83 118/59 L 06/28/18 18:17 81 92 06/28/18 18:12 85 94 06/28/18 18:10 87 124/57 L 06/28/18 18:07 97 H 94 06/28/18 18:02 86 94 06/28/18 18:00 87 122/65 06/28/18 17:57 95 H 94 06/28/18 17:52 85 93 06/28/18 17:50 82 120/66 06/28/18 17:47 90 93 06/28/18 17:42 84 94 06/28/18 17:41 82 121/58 L 06/28/18 17:40 36.7 C 18 06/28/18 17:37 89 95 06/28/18 17:35 90 89 L 06/28/18 17:32 77 94 06/28/18 17:31 80 99/57 L 06/28/18 17:27 81 94 06/28/18 17:22 93 H 95 06/28/18 17:17 84 94 06/28/18 17:12 89 94 06/28/18 17:10 88 20 109/59 L 06/28/18 17:08 94 H 89 L 06/28/18 17:07 86 93 06/28/18 17:02 78 93 06/28/18 17:00 74 97/52 L 06/28/18 16:57 73 95 06/28/18 16:52 73 94 06/28/18 16:50 79 107/57 L 06/28/18 16:46 82 93 06/28/18 16:45 80 110/57 L 06/28/18 16:41 86 94 06/28/18 16:40 81 16 106/58 L 06/28/18 16:36 78 94 06/28/18 16:31 81 101/57 L 94 06/28/18 16:30 36.8 C 20 06/28/18 16:26 84 149/72 H 93 06/28/18 16:21 86 95 06/28/18 16:20 84 18 89/56 L 06/28/18 16:16 89 93 06/28/18 16:11 85 92 06/28/18 16:10 81 18 86/48 L 06/28/18 16:06 89 92 06/28/18 16:04 83 95/53 L 06/28/18 16:02 82 93/51 L 06/28/18 16:01 83 94 06/28/18 15:59 78 88/51 L 06/28/18 15:57 76 85/50 L 06/28/18 15:56 85 87/49 L 93 06/28/18 15:51 81 86 L 06/28/18 15:46 81 92/52 L 94 06/28/18 15:41 85 93 06/28/18 15:40 36.9 C 82 16 06/28/18 15:36 83 91/51 L 93 06/28/18 14:33 84 95 06/28/18 14:28 80 95 06/28/18 14:23 83 95 06/28/18 14:18 91 H 98 06/28/18 14:13 79 97 06/28/18 14:10 74 102/62 06/28/18 14:08 84 99 06/28/18 14:03 88 96 06/28/18 13:58 75 97 06/28/18 13:55 86 103/59 L 06/28/18 13:53 89 95 06/28/18 13:48 81 96 05/24/19 13:45 37.4 C 20 06/28/18 13:43 76 96 06/28/18 13:40 68 105/59 L 06/28/18 13:38 79 99 06/28/18 13:33 79 99 06/28/18 13:28 72 99 06/28/18 13:26 73 104/61 06/28/18 13:24 82 88 L 06/28/18 13:23 68 96 06/28/18 13:18 68 98 06/28/18 13:15 74 88 L 06/28/18 13:13 75 99 06/28/18 13:11 65 110/53 L 06/28/18 13:08 61 96 06/28/18 13:03 66 96 06/28/18 12:58 66 97 06/28/18 12:57 63 113/64 06/28/18 12:53 76 95 06/28/18 12:48 68 97 06/28/18 12:47 130 H 88 L 06/28/18 12:43 64 98 06/28/18 12:42 120 H 89 L 06/28/18 12:40 76 119/68 06/28/18 12:38 73 99 06/28/18 12:33 72 97 06/28/18 12:28 72 97 06/28/18 12:25 68 114/59 L 06/28/18 12:23 67 97 06/28/18 12:19 67 86 L 06/28/18 12:18 78 98 06/28/18 12:13 73 97 06/28/18 12:12 83 110/57 L 87 L 06/28/18 12:08 70 98 06/28/18 12:03 90 95 06/28/18 12:00 37.7 C H 18 06/28/18 11:58 77 95 06/28/18 11:56 74 122/69 06/28/18 11:53 77 95 06/28/18 11:48 82 94 06/28/18 11:43 78 96 06/28/18 11:42 76 114/71 06/28/18 11:38 77 94 06/28/18 11:33 76 94 06/28/18 11:28 83 95 06/28/18 11:26 76 116/66 06/28/18 11:23 77 95 05/24/19 11:18 77 94 06/28/18 11:13 75 95 06/28/18 11:12 74 114/68 06/28/18 11:08 75 95 06/28/18 11:03 73 95 06/28/18 10:58 76 95 06/28/18 10:56 73 112/62 06/28/18 10:53 76 95 06/28/18 10:48 75 95 06/28/18 10:43 73 94 06/28/18 10:41 78 107/56 L 06/28/18 10:37 79 94 06/28/18 10:32 80 94 06/28/18 10:27 83 94 06/28/18 10:26 76 105/57 L 06/28/18 10:22 87 94 06/28/18 10:17 80 94 06/28/18 10:12 78 95 06/28/18 10:11 85 113/57 L 06/28/18 10:07 37.5 C 80 18 95 06/28/18 10:02 70 99 06/28/18 09:57 84 99 06/28/18 09:56 71 105/58 L 06/28/18 09:52 77 98 Pain Intensity Lower Abdomen: Pain Intensity: 2 Transfer of Care Handoff Completed per policy Notes Mental Status: alert / awake / arousable Patient Amnestic to Procedure: Yes Nausea / Vomiting: adequately controlled Pain: adequately controlled Airway Patency, RR, SpO2: stable & adequate BP & HR: stable & adequate Hydration State: stable & adequate Neuraxial Anesthesia: was administered and sensory block is resolving Anesthetic Complications: no major complications apparent
[2018-06-29] MEDS: IBUPROFEN 600 MG TAB PO PRN ×2 (16:04→20:33)
[2018-06-29] MEDS: OXYCODONE/ACETAMINOPHEN 5mg/325mg TAB PO PRN ×2 (16:04→20:33)
[2018-06-29] MEDS: SUPERCREAM 0.870% 15 GM JAR EXT PRN (19:21)
[2018-06-30] MEDS: OXYCODONE/ACETAMINOPHEN 5mg/325mg TAB PO PRN ×6 (00:22→23:08)
[2018-06-30] MEDS: IBUPROFEN 600 MG TAB PO PRN ×6 (00:23→23:07)
--- NOTE | 2018-06-30 07:25 | Obstetrical Progress Note ---
Date of Service June 30, 2018 Postop day #2 from the patient is struggling a bit emotionally she is feeling that she somehow failed and not delivering vaginally otherwise she is doing well she is having minimal bleeding her pain is controlled she is tolerating an oral diet and she has no extremity pain Assessment & Plan (1) delivery delivered: Postop day #2 we will watch carefully for any signs of depression at this stage she does not feel she has that she is just disappointed Physical Exam Vital Signs (Past 24 Hours) Last Vital Signs Temp 36.6 C 06/29/18 23:05 Pulse 89 06/29/18 23:05 Resp 16 06/29/18 23:05 BP 112/70 06/29/18 23:05 Pulse Ox 97 06/29/18 23:05 Vital signs are stable she is afebrile chest is clear Abdomen is soft uterus is firm nontender incision clean dry and intact Extremity exam negative
[2018-06-30 07:51] LABS: Hematocrit (blood only) 25.6 % (37-47); Hemoglobin 8.8 g/dL (12.0-16.0)
[2018-06-30] MEDS: PRENATAL VITAMIN 1 TAB PO SCH (08:03)
[2018-06-30] MEDS: SIMETHICONE 80 MG CHEW PO SCH ×4 (08:04→20:12)
[2018-06-30] MEDS: DOCUSATE SODIUM 100 MG CAP PO SCH ×2 (08:04→20:11)
[2018-06-30] MEDS: FERROUS SULFATE 325 MG TAB PO SCH (08:07)
[2018-06-30] MEDS: SUPERCREAM 0.870% 15 GM JAR EXT PRN (17:13)
[2018-07-01] MEDS: IBUPROFEN 600 MG TAB PO PRN ×3 (03:01→12:04)
[2018-07-01] MEDS: OXYCODONE/ACETAMINOPHEN 5mg/325mg TAB PO PRN ×4 (03:02→12:56)
--- NOTE | 2018-07-01 06:52 | Obstetrical Progress Note ---
Date of Service <Kwame Jones MD - Last Filed: 07/01/18 07:06> July 01, 2018 Assessment & Plan <Kwame Jones MD - Last Filed: 07/01/18 07:06> (1) delivery delivered: 32 year old day 3 s/p LT C/S at 39 weeks and 6 days for failure to progress Vital Signs Reviewed and WNL Having abdominal pain that isn't improving, appears constipated incision clean dry and intact abdomen soft to examination Will try colace and miralax Hemoglobin 8.8 Blood type A+, GBS -, Rubella Immune Encouraged further ambulation and activity on d/c Breast feeding going well so far Educated patient on discharge instructions Subjective <Kwame Jones MD - Last Filed: 07/01/18 07:06> Ambulation: limited ambulation (Due to abdominal pain) Voiding: incontinence (Small amount of incontinence) Passing Gas:: Yes (some) Diet Tolerance:: regular diet Lochia:: Small Feeding Type:: breast feeding Current Pain Level(1-10): 7 Ms. Hand is still endorsing a fair amount of abdominal pain, both at and around the incision. She tells me she has passed some gas, but has not had a bowel motion yet. She is having some incontinence while urinating she notices some leaking when she finishes, but does not endorse any other symptoms on complete review of systems Constitutional: no fever and no chills Respiratory: no cough and no dyspnea Cardiovascular: no chest pain, no dyspnea and no calf pain Gastrointestinal: + abdominal pain; no nausea and no vomiting Psychiatric: + anxiety Physical Exam <Kwame Jones MD - Last Filed: 07/01/18 07:06> Vital Signs (Past 24 Hours) Last Vital Signs Temp 36.4 C L 06/30/18 23:10 Pulse 92 H 06/30/18 23:10 Resp 16 06/30/18 23:10 BP 115/76 06/30/18 23:10 Pulse Ox 96 06/30/18 23:10 Constitutional well developed, well nourished, cooperative and comfortable Respiratory normal respiratory effort, lungs clear to auscultation Cardiovascular Rate/Rhythm: regular rate and regular rhythm Heart Sounds: no click, no gallop, no murmur and no cardiac rub Extremities: no calf tenderness Gastrointestinal (Abdomen) Percussion/Palpation: + abdomen tender (at and around uterus particularly left and right lower quadrants.) and abdomen soft Genitourinary OB Exam Abdomen: + fundal height (1 cm below umbilicus) Fundus: + firm and + tender <Lindsay Galeas MD, FACOG - Last Filed: 07/01/18 07:16> Co-Signing Physician Notes Resident Physician Supervision Note: I was present with [Name of resident] during the history and exam. I discussed the case with the resident and agree with the findings and plan as documented in the note. Any exceptions or clarifications are listed here: [None] Documented By: Lindsay Galeas MD, FACOG Resident Activity Tracking <Kwame Jones MD - Last Filed: 07/01/18 07:06> Resident Involvement: Resident Care Provided Care Provided: OB Delivery
[2018-07-01] MEDS: DOCUSATE SODIUM 100 MG CAP PO SCH (08:34)
[2018-07-01] MEDS: SIMETHICONE 80 MG CHEW PO SCH ×2 (08:34→12:03)
[2018-07-01] MEDS: FERROUS SULFATE 325 MG TAB PO SCH (08:34)
[2018-07-01] MEDS: PRENATAL VITAMIN 1 TAB PO SCH (08:34)
[2018-07-01] MEDS ORDERED: POLYETHYLENE (MIRALAX) 17 GM PACK PO PRN (09:02)
[2018-07-01] MEDS ORDERED: DOCUSATE SODIUM/SENNA 50/8.6MG TAB PO SCH (09:15)
--- NOTE | 2018-07-03 08:29 | Discharge Summary ---
Date of Service July 03, 2018 Discharge Data Consultations 06/27/18 14:41 Consult Anesthesiology Stat 06/28/18 14:08 Consult Anesthesiology Stat Procedures Performed Operation Date: 06/28/18 14:30 Actual Procedures p Section in LD - Natacha Baca MD Hospital Course (1) PROM (premature rupture of membranes): Patient reached complete dilation and pushed 2 hours without delivering. She underwent uncomplicated section for failure to progress. After a routine recovery she was discharged home at the usual interval with plan for follow up in 6 weeks.
== END 2018-07-01 13:00 | disposition home or self-care (01) | DRG 788 ==
LOC: OPB 13:07 → 4S1 13:10 → 4S2 06-28 18:44